=== PATIENT | female | born 1945 | race Caucasian/White ===

== ENCOUNTER → 2020-03-25 | Outpatient (CLI) | payer OTHER ==
[~2020-03-25] MED LIST: BACTRIM 400-801 EACH PO; BLOOD TEST; CARAFATE1 GM PO; CELEBREX200 MG PO; ECOTRIN81 MG PO; KEFLEX CAP 500500 MG PO; LACTULOSE10 GM/15 M PO; LORTAB 5-325 M1 EACH PO; NITROGLYCERIN0.4 MG PO; OMEGA 3 1,0001 EACH PO; PERCOCET 5/325 T1 EA PO; PLAVIX 75 MG TA75 MG PO; PREDNISONE1 MG PO; PREDNISONE5 MG PO; PROTONIX 40 MG40 M1 PO; PROTONIX40 MG PO; SERTRALINE HCL100 MG PO; SYNTHROID25 MCG PO; VITAMIN D35000 UNI1 PO; ZOCOR40 MG PO; ZOLOFT100 MG PO
== END ==
LOC: OPSV 10:00
DX: M31.6 Other giant cell arteritis (principal)
CPT/HCPCS: 96365; 96375; J1720

== ENCOUNTER → 2020-04-16 | Outpatient (CLI) | payer MEDICARE | LOC: MRI 13:34 | DX: M31.6 Other giant cell arteritis (principal); R51.9 Headache, unspecified; R90.89 Other abnormal findings on diagnostic imaging of central nervous system | CPT/HCPCS: 70544; 70551 ==

== ENCOUNTER → 2020-05-02 | Outpatient (CLI) | payer MEDICARE ==
[~2020-05-02] VITALS: Ht 170.2 cm; Wt 69.9 kg
== END ==
LOC: OPSV 04-21 13:00
DX: M31.6 Other giant cell arteritis (principal)
CPT/HCPCS: 96365; 96375; J1720

== ENCOUNTER → 2020-06-11 | Outpatient (CLI) | payer MEDICARE ==
[~2020-06-11] VITALS: Ht 170.2 cm; Wt 69.9 kg
[2020-06-11 10:30] LABS: HEMOGLOBIN 13.2 gm/dl (12.3-15.3); RED BLOOD COUNT 4.44 M/UL (4.00-5.10); WHITE BLOOD COUNT 7.3 K/UL (4.5-11.0)
[2020-06-11 10:56] LABS: BUN/CREATININE RATIO 23 (0-10)
== END ==
LOC: OPSV 09:00
PROVIDERS: Internal Medicine
DX: K76.89 Other specified diseases of liver (principal); M31.6 Other giant cell arteritis; N28.1 Cyst of kidney, acquired; R91.8 Other nonspecific abnormal finding of lung field
CPT/HCPCS: 36415; 80053; 85027; 96365; 96375; J1720; Q9967

== ENCOUNTER → 2020-07-09 | Outpatient (CLI) | payer MEDICARE | LOC: OPSV 11:00 | DX: M31.6 Other giant cell arteritis (principal) | CPT/HCPCS: 96365; J1720 ==

== ENCOUNTER → 2020-08-05 | Outpatient (CLI) | payer MEDICARE | LOC: RAD 13:45 | DX: M25.512 Pain in left shoulder (principal); M89.8X1 Other specified disorders of bone, shoulder | CPT/HCPCS: 73030 ==

== ENCOUNTER → 2020-08-06 | Outpatient (CLI) | payer MEDICARE ==
[~2020-08-06] VITALS: Ht 170.2 cm; Wt 69.9 kg
[2020-08-06 12:26] LABS: RED BLOOD COUNT 4.68 M/UL (4.00-5.10); WHITE BLOOD COUNT 7.7 K/UL (4.5-11.0)
[2020-08-06 12:50] LABS: BUN/CREATININE RATIO 20 (0-10)
== END ==
LOC: OPSV 11:00
PROVIDERS: Internal Medicine
DX: M31.6 Other giant cell arteritis (principal)
CPT/HCPCS: 36415; 80053; 85027; 96365; J1720

== ENCOUNTER → 2020-08-14 | Outpatient (CLI) | payer MEDICARE | LOC: MAMO 07-15 13:00 | DX: Z12.31 Encounter for screening mammogram for malignant neoplasm of breast (principal); Z90.710 Acquired absence of both cervix and uterus | CPT/HCPCS: 77063; 77067 ==

== ENCOUNTER → 2020-09-03 | Outpatient (CLI) | payer MEDICARE ==
[~2020-09-03] VITALS: Ht 170.2 cm; Wt 69.9 kg
== END ==
LOC: OPSV 11:00
DX: M31.6 Other giant cell arteritis (principal)
CPT/HCPCS: 96365; 96374; 96375; J1720

== ENCOUNTER → 2020-09-25 | Outpatient (CLI) | payer MEDICARE | LOC: KOH-I 13:14 | DX: M75.101 Unspecified rotator cuff tear or rupture of right shoulder, not specified as traumatic (principal); M84.422A Pathological fracture, left humerus, initial encounter for fracture; M21.922 Unspecified acquired deformity of left upper arm; M71.812 Other specified bursopathies, left shoulder | CPT/HCPCS: 73221 ==

== ENCOUNTER → 2020-10-10 | Outpatient (CLI) | payer MEDICARE ==
[~2020-10-10] VITALS: Ht 170.2 cm; Wt 69.9 kg
[2020-10-10 12:22] LABS: HEMOGLOBIN 13.1 gm/dl (12.3-15.3); RED BLOOD COUNT 4.37 M/UL (4.00-5.10)
== END ==
LOC: OPSV 11:00
PROVIDERS: Internal Medicine
DX: M31.6 Other giant cell arteritis (principal)
CPT/HCPCS: 36415; 80053; 80061; 85027; 85652; 86140; 96365; 96375; J1720

== ENCOUNTER → 2020-11-07 | Outpatient (CLI) | payer MEDICARE ==
[~2020-11-07] VITALS: Ht 170.2 cm; Wt 69.9 kg
== END ==
LOC: OPSV 10:52
DX: M31.6 Other giant cell arteritis (principal)
CPT/HCPCS: 96365; 96375; J1720

== ENCOUNTER → 2020-12-15 | Outpatient (CLI) | payer MEDICARE ==
[~2020-12-15] VITALS: Ht 170.2 cm; Wt 69.9 kg
[2020-12-15 11:22] LABS: HEMOGLOBIN 13.3 gm/dl (12.3-15.3); RED BLOOD COUNT 4.41 M/UL (4.00-5.10); WHITE BLOOD COUNT 8.4 K/UL (4.5-11.0)
== END ==
LOC: OPSV 12-05 11:00
PROVIDERS: Internal Medicine
DX: M31.6 Other giant cell arteritis (principal)
CPT/HCPCS: 80053; 85027; 85652; 86140; 96365; 96375; J1720; J3262

== ENCOUNTER → 2021-01-15 | Outpatient (CLI) | payer MEDICARE ==
[~2021-01-15] VITALS: Ht 170.2 cm; Wt 69.9 kg
== END ==
LOC: OPSV 01-12 11:00
DX: M31.6 Other giant cell arteritis (principal)
CPT/HCPCS: 96365; 96375; J1720

== ENCOUNTER → 2021-02-12 | Outpatient (CLI) | payer MEDICARE ==
[2021-02-12 12:42] LABS: HEMOGLOBIN 13.2 gm/dl (12.3-15.3); RED BLOOD COUNT 4.44 M/UL (4.00-5.10); WHITE BLOOD COUNT 10.4 K/UL (4.5-11.0)
[2021-02-12 13:06] LABS: BUN/CREATININE RATIO 23 (0-10)
== END ==
LOC: OPSV 12:00
PROVIDERS: Internal Medicine
DX: M31.6 Other giant cell arteritis (principal)
CPT/HCPCS: 80053; 80061; 85027; 85652; 86140; 96365; 96375; J1720

== ENCOUNTER → 2021-03-12 | Outpatient (CLI) | payer MEDICARE ==
[~2021-03-12] VITALS: Ht 170.2 cm; Wt 69.9 kg
== END ==
LOC: OPSV 12:27
DX: M31.6 Other giant cell arteritis (principal)
CPT/HCPCS: 96365; 96375; J1720

== ENCOUNTER → 2021-04-09 | Outpatient (CLI) | payer MEDICARE ==
[~2021-04-09] VITALS: Ht 170.2 cm; Wt 69.9 kg
[2021-04-09 12:26] LABS: HEMOGLOBIN 13.4 gm/dl (12.3-15.3); RED BLOOD COUNT 4.59 M/UL (4.00-5.10); WHITE BLOOD COUNT 10.1 K/UL (4.5-11.0)
== END ==
LOC: OPSV 11:50
PROVIDERS: Internal Medicine
DX: M31.6 Other giant cell arteritis (principal)
CPT/HCPCS: 80053; 85027; 85652; 86140; 96365; 96375; J1720

== ENCOUNTER → 2021-05-07 | Outpatient (CLI) | payer MEDICARE ==
[~2021-05-07] VITALS: Ht 170.2 cm; Wt 69.9 kg
[2021-05-07 12:36] LABS: HEMOGLOBIN 13.8 gm/dl (12.3-15.3); RED BLOOD COUNT 4.74 M/UL (4.00-5.10); WHITE BLOOD COUNT 7.3 K/UL (4.5-11.0)
== END ==
LOC: OPSV 12:00
PROVIDERS: Internal Medicine
DX: M31.6 Other giant cell arteritis (principal)
CPT/HCPCS: 80053; 85027; 85652; 86140; 96365; 96375; J1720

== ENCOUNTER → 2021-06-04 | Outpatient (CLI) | payer MEDICARE ==
[~2021-06-04] VITALS: Ht 170.2 cm; Wt 69.9 kg
== END ==
LOC: OPSV 11:32
DX: M31.6 Other giant cell arteritis (principal)
CPT/HCPCS: 96365; 96375; J1720

== ENCOUNTER → 2021-07-02 | Outpatient (CLI) | payer MEDICARE ==
[~2021-07-02] VITALS: Ht 170.2 cm; Wt 69.9 kg
[2021-07-02 12:24] LABS: HEMOGLOBIN 13.8 gm/dl (12.3-15.3); RED BLOOD COUNT 4.52 M/UL (4.00-5.10); WHITE BLOOD COUNT 9.7 K/UL (4.5-11.0)
== END ==
LOC: OPSV 12:00
PROVIDERS: Internal Medicine
DX: M31.6 Other giant cell arteritis (principal)
CPT/HCPCS: 80053; 85027; 85652; 86140; 96365; 96375; J1720

== ENCOUNTER → 2021-07-30 | Outpatient (CLI) | payer OTHER ==
[~2021-07-30] VITALS: Ht 170.2 cm; Wt 69.9 kg
== END ==
LOC: OPSV 12:00
DX: M31.6 Other giant cell arteritis (principal)
CPT/HCPCS: 96365; 96375; J1720

== ENCOUNTER → 2021-09-22 | Outpatient (CLI) | payer OTHER ==
[~2021-09-22] VITALS: Ht 170.2 cm; Wt 69.9 kg
[2021-09-22 12:11] LABS: HEMOGLOBIN 13.2 gm/dl (12.3-15.3); RED BLOOD COUNT 4.54 M/UL (4.00-5.10); WHITE BLOOD COUNT 10.6 K/UL (4.5-11.0)
[2021-09-23 13:14] LABS: CHOLESTEROL, TOTAL 207 mg/dL (100-199); HDL CHOLESTEROL 70 mg/dL (>39); LDL CHOLESTEROL CALC 113 mg/dL (0-99); LDL/HDL RATIO 1.6 ratio (0.0-3.2); TRIGLYCERIDES 137 mg/dL (0-149)
== END ==
LOC: OPSV 09-21 12:00
PROVIDERS: Internal Medicine
DX: M06.9 Rheumatoid arthritis, unspecified (principal)
CPT/HCPCS: 80053; 80061; 85027; 85652; 86140; 96365; 96375; J1720

== ENCOUNTER → 2021-10-28 | Outpatient (CLI) | payer OTHER ==
[~2021-10-28] VITALS: Ht 170.2 cm; Wt 69.9 kg
== END ==
LOC: OPSV 10:54
DX: M05.79 Rheumatoid arthritis with rheumatoid factor of multiple sites without organ or systems involvement (principal)
CPT/HCPCS: 96365; 96375; J1720

== ENCOUNTER → 2021-11-25 | Outpatient (CLI) | payer OTHER ==
[~2021-11-25] VITALS: Ht 170.2 cm; Wt 69.9 kg
== END ==
LOC: OPSV 11:22
DX: M05.79 Rheumatoid arthritis with rheumatoid factor of multiple sites without organ or systems involvement (principal)
CPT/HCPCS: 96365; 96375; J1720

== ENCOUNTER → 2021-12-23 | Outpatient (CLI) | payer OTHER ==
[~2021-12-23] VITALS: Ht 170.2 cm; Wt 69.9 kg
== END ==
LOC: OPSV 11:51
DX: M05.79 Rheumatoid arthritis with rheumatoid factor of multiple sites without organ or systems involvement (principal)
CPT/HCPCS: 96365; 96375; J1720